=== PATIENT | male | born 1935 | race Caucasian/White ===

== ENCOUNTER 2016-10-19 13:34 | Inpatient (IN) | payer MEDICARE, OTHER ==
[2016-10-19] MEDS ORDERED: TYLENOL 325 MG PO PRN (17:09)
[2016-10-19] MEDS ORDERED: NON-FORMULARY ITEM (Prochlorperazine Maleate 10 Mg [Compazine 10 Mg] 10 MG) PO PRN (17:09)
[2016-10-19] MEDS ORDERED: Ativan 0.5 MG PO PRN (17:09)
[2016-10-19] MEDS ORDERED: Dulcolax 10 MG SUPP RC PRN (17:09)
[2016-10-19] MEDS ORDERED: ONDANSETRON 8 MG PO PRN (17:09)
[2016-10-19] MEDS ORDERED: Compazine 5 MG PO PRN (17:13)
[2016-10-19] MEDS ORDERED: ZOFRAN ODT 4 MG PO PRN (17:14)
--- NOTE | 2016-10-19 17:39 | XRAY ---
Indication: Short of breath and anemia. Status post thoracentesis. Comparison: None Portable chest demonstrates left base infiltrate/atelectasis/effusion. No pneumothorax. Right lung clear. Heart is not enlarged for AP portable technique. Bony thorax intact with mild osteopenia and degenerative changes. Impression: Left base infiltrate/atelectasis/effusion. Correlate clinically.
[2016-10-19] MEDS ORDERED: NON-FORMULARY ITEM (Mirtazapine [Remeron] 15 MG) PO SCH (22:00)
[2016-10-19] MEDS: REMERON 30 MG PO SCH (22:08)
[2016-10-20] MEDS: Flomax 0.4 MG PO SCH (09:28)
[2016-10-20] MEDS: Vitamin B-12 500 MCG PO SCH (09:28)
--- NOTE | 2016-10-20 09:45 | PCM.HP ---
History of Present Illness - Chief Complaint Chief Complaint: Deconditioning r/t SOB, anemia, thoracentesis, rectal CA Date: 10/20/16 History of Present Illness: is a 81 year old male. diagnosed last year with rectal cancer. He has been treated with chemotherapy and radiation. There is concern for possible metastasis to pleural fluid but studies are pending on this. After his last debulking surgery it appears in [place] he developed a buttocks wound infection and has been dealing with this for a wound vac now with wound therapy. He then developed worsening shortness of breath and was found to have large pleural effusions and severe anemia and was transfused 4 Units PRBC at [facility]. He then had thoracentesis X 2 the last being 10/13/16 with 250 cc of fluid drained the cytology is pending. There was discussion of putting chronic draining catheter in but elected not to do that at this time now. He follows with Dr. Beach oncology. last hgb available was 11.4 on 10/16/16. plt 225 and creat 0.5. - Review of Systems Constitutional: Lethargy, Malaise, No Fever, No Chills Eyes: No Symptoms Ears, Nose, & Throat: No Symptoms Respiratory: No Cough, No Short Of Breath Cardiac: No Chest Pain, No Edema, No Syncope Abdominal/Gastrointestinal: No Abdominal Pain, No Nausea, No Vomiting, No Diarrhea Genitourinary Symptoms: No Dysuria Musculoskeletal: No Back Pain, No Neck Pain Skin: No Rash Neurological: No Dizziness, No Focal Weakness, No Sensory Changes Psychological: No Symptoms Endocrine: No Symptoms Hematologic/Lymphatic: No Symptoms Immunological/Allergic: No Symptoms Medications & Allergies Home Medications: Home Medication List Acetaminophen 325 mg [Tylenol 325 mg] 650 mg PO Q6HPRN PRN 10/19/16 [ History Confirmed 10/19/16] Bisacodyl 10 mg [Dulcolax 10 MG SUPP] 10 mg RC DAILY PRN PRN 10/19/16 [ History Confirmed 10/19/16] Cyanocobalamin (Vitamin B-12) [Vitamin B-12] 1,000 mcg PO DAILY 10/19/16 [ History Confirmed 10/19/16] Hydrocodone Bit/Acetaminophen [[place] 5/325Mg] 1 tab PO Q4HPRN PRN 10/19/16 [ History Confirmed 10/19/16] Lorazepam 0.5 mg [Ativan 0.5 MG] 0.5 mg PO 1200 10/19/16 [History Confirmed 10/19/16] Lorazepam 0.5 mg [Ativan 0.5 MG] 0.5 mg PO Q6HPRN PRN 10/19/16 [History Confirmed 10/19/16] Mirtazapine [Remeron] 15 mg PO HS 10/19/16 [History Confirmed 10/19/16] Ondansetron 8 mg Odt [Ondansetron Odt 8 mg] 8 mg PO Q8HPRN PRN 10/19/16 [ History Confirmed 10/19/16] Prochlorperazine Maleate 10 mg [Compazine 10 mg] 10 mg PO Q6HPRN PRN 10/19/16 [ History Confirmed 10/19/16] Sennosides/Docusate Sodium [Senna-Docusate Sodium Tablet] 1 each PO DAILY PRN [History Confirmed 10/19/16] Tamsulosin HCl 0.4 mg [Flomax 0.4 MG] 0.8 mg PO DAILY 10/19/16 [History Confirmed 10/19/16] Allergies/Adverse Reactions: Allergies Allergy/AdvReac Type Severity Reaction Status Date / Time No Known Drug Allergies Allergy Verified 02/18/16 14:06 - Past Medical History Past Medical History: Yes Neurological History: No Pertinent History ENT History: No Pertinent History Cardiac History: No Pertinent History Respiratory History: Pneumonia Endocrine Medical History: No Pertinent History Musculoskelatal History: No Pertinent History GI Medical History: Colorectal Cancer History: No Pertinent History Pyscho-Social History: Anxiety, Depression Male Reproductive Disorders: No Pertinent History Comment: Rectal mass - Past Surgical History Past Surgical History: Yes Neuro Surgical History: No Pertinent History Cardiac History: No Pertinent History Respiratory Surgery: No Pertinent History GI Surgical History: Colon Resection Genitourinary Surgical Hx: No Pertinent History Musculskeletal Surgical Hx: Orthopedic Surgery Male Surgical History: No Pertinent History Other Surgical History: rt rotator cuff repair. colonoscopy - Social History Smoking Status: Never smoker Exposure to second hand smoke: No Alcohol: None Drug Use: none - Physical Exam Vital Signs: Vital Signs - 24 hr Temp Pulse Resp BP Pulse Ox 10/20/16 07:47 107 H 20 88 L 10/19/16 21:00 97.8 F 105 H 20 126/70 92 L 10/19/16 17:10 97.8 F 119 H 18 126/70 92 L 10/19/16 15:48 97.8 F 119 H 18 126/70 92 L 10/19/16 15:04 97.8 F 119 H 18 126/70 92 L General Appearance: no apparent distress, alert Neurologic Exam: alert, oriented x 3, cooperative, normal mood/affect, nml cerebellar function, nml station & gait, sensation nml, No motor deficits Eye Exam: PERRL/EOMI, eyes nml inspection Ears, Nose, Throat Exam: normal ENT inspection, TMs normal, pharynx normal, moist mucous membranes Neck Exam: normal inspection, non-tender, supple, full range of motion Respiratory Exam: normal breath sounds, lungs clear, No respiratory distress Cardiovascular Exam: regular rate/rhythm, normal heart sounds, normal peripheral pulses Gastrointestinal/Abdomen Exam: soft, normal bowel sounds, other (colostomy left lower quadrant wound vac buttocks), No tenderness, No mass Back Exam: normal inspection, normal range of motion, No CVA tenderness, No vertebral tenderness Extremity Exam: normal inspection, normal range of motion, pelvis stable Skin Exam: normal color, warm, dry, No rash Lymphatic Exam: No adenopathy Results - Radiology Impressions Radiology Exams & Impressions: Radiology Procedures Category Date Time Status CHEST 1 VIEW (PORTABLE) Routine Exams 10/19/16 18:30 Completed - Other Procedures and Tests Respiratory Therapy 10/20/16 07:45 Oxygen NASAL CANNULA 2 lpm Assessment/Plan (1) Rectal cancer Current Visit: Yes Status: Acute Assessment & Plan: follows with oncology Yong awaiting cytology on pleural fluid from [facility] to rule out metastasis to pleural fluid. Work on improving conditioning and controlling the wound of buttocks with wound vac hope for conditioning and restrengthening to be able to discharge back to home with assistance. Code(s): C20 - MALIGNANT NEOPLASM OF RECTUM (2) Anemia Current Visit: Yes Status: Acute Code(s): D64.9 - ANEMIA, UNSPECIFIED (3) Pleural effusion Current Visit: Yes Status: Acute Code(s): J90 - PLEURAL EFFUSION, NOT ELSEWHERE CLASSIFIED (4) Chronic respiratory failure with hypoxia Current Visit: Yes Status: Acute (5) Generalized weakness Current Visit: Yes Status: Acute Code(s): R53.1 - WEAKNESS (6) Wound, open, buttock with complication Current Visit: Yes Status: Acute Code(s): S31.809A - UNSPECIFIED OPEN WOUND OF UNSPECIFIED BUTTOCK, INIT ENCNTR
[2016-10-20] MEDS ORDERED: NON-FORMULARY ITEM (Cyanocobalamin (Vitamin B-12) [Vitamin B-12] 1,000 MCG) PO SCH (10:00)
[2016-10-20] MEDS ORDERED: Aplisol ID SCH (10:00)
[2016-10-20] MEDS: Ativan 0.5 MG PO SCH (11:45)
[2016-10-20] MEDS: ZOFRAN ODT 4 MG PO PRN (14:43)
[2016-10-20] MEDS: REMERON 30 MG PO SCH (22:58)
[2016-10-20] MEDS ORDERED: TUMS EX TABLETS PO ONE (23:07)
[2016-10-20] MEDS ORDERED: Tums EX 750 MG PO PRN (23:17)
[2016-10-21] MEDS: Flomax 0.4 MG PO SCH (09:52)
[2016-10-21] MEDS: Vitamin B-12 500 MCG PO SCH (09:52)
[2016-10-21] MEDS: Ativan 0.5 MG PO SCH (12:46)
[2016-10-21] MEDS: REMERON 30 MG PO SCH (21:42)
[2016-10-22] MEDS: Flomax 0.4 MG PO SCH (09:09)
[2016-10-22] MEDS: Senokot-S Tablet PO PRN (09:09)
[2016-10-22] MEDS: Vitamin B-12 500 MCG PO SCH (09:10)
[2016-10-22] MEDS: Ativan 0.5 MG PO SCH (12:21)
[2016-10-22] MEDS: ZOFRAN ODT 4 MG PO PRN (18:23)
[2016-10-22] MEDS: REMERON 30 MG PO SCH (22:16)
[2016-10-23] MEDS: Flomax 0.4 MG PO SCH (09:40)
[2016-10-23] MEDS: Senokot-S Tablet PO PRN (09:41)
[2016-10-23] MEDS: Vitamin B-12 500 MCG PO SCH (09:41)
[2016-10-23] MEDS: Ativan 0.5 MG PO SCH (12:57)
[2016-10-23] MEDS: REMERON 30 MG PO SCH (22:35)
[2016-10-24] MEDS: Flomax 0.4 MG PO SCH (10:50)
[2016-10-24] MEDS: Vitamin B-12 500 MCG PO SCH (10:50)
[2016-10-24] MEDS: Ativan 0.5 MG PO SCH (11:47)
[2016-10-24] MEDS: NORCO 5/325 MG PO PRN (12:52)
[2016-10-24] MEDS: REMERON 30 MG PO SCH (20:11)
[2016-10-25] MEDS: Flomax 0.4 MG PO SCH (09:48)
[2016-10-25] MEDS: NORCO 5/325 MG PO PRN (09:48)
[2016-10-25] MEDS: Vitamin B-12 500 MCG PO SCH (09:49)
[2016-10-25] MEDS: Ativan 0.5 MG PO SCH (12:32)
[2016-10-25] MEDS: REMERON 30 MG PO SCH (22:03)
[2016-10-26] MEDS: Vitamin B-12 500 MCG PO SCH (10:08)
[2016-10-26] MEDS: Flomax 0.4 MG PO SCH (10:08)
[2016-10-26] MEDS: Ativan 0.5 MG PO SCH (11:27)
[2016-10-26] MEDS: REMERON 30 MG PO SCH (21:57)
[2016-10-27 05:29] LABS: Mean Cell Volume 87.8 fl (78-100); Mean Platelet Volume 9.3 fl (6-9.5); Platelet Count 262 K/mm3 (150-450); Red Blood Count 4.25 M/mm3 (4.1-5.6); Red Cell Distribution Width 15.9 % (11.5-14.0); White Blood Count 8.3 K/mm3 (4.0-10.5)
[2016-10-27 05:47] LABS: ANION GAP 13.6 MEQ/L (5-15); BLOOD UREA NITROGEN 14 mg/dL (9-20); CHLORIDE 104 mEq/L (98-107); Carbon Dioxide 26.5 mEq/L (21-32); Glucose 89 MG/DL (70-110); Potassium 3.2 mEq/L (3.5-5.1); SODIUM 141 mEq/L (136-145)
[2016-10-27] MEDS: Senokot-S Tablet PO PRN (09:55)
[2016-10-27] MEDS: Vitamin B-12 500 MCG PO SCH (09:55)
[2016-10-27] MEDS: Flomax 0.4 MG PO SCH (09:55)
[2016-10-27] MEDS: Klor Con 10 MEQ PO SCH (10:00)
[2016-10-27] MEDS: Ativan 0.5 MG PO SCH (11:21)
[2016-10-27] MEDS: REMERON 30 MG PO SCH (21:26)
[2016-10-28 07:29] VITALS: BP 134/82; PULSE 117; O2SAT 96
--- NOTE | 2016-10-28 09:03 | PCM.DCORD ---
- Discharge Discharge Date: 10/28/16 Disposition: Home, Self-Care Condition: Stable Prescriptions: New Potassium Chloride 10 Meq Tab* [Klor Con 10 MEQ] 20 meq PO DAILY #60 tab Continue Tamsulosin HCl 0.4 mg [Flomax 0.4 MG] 0.8 mg PO DAILY Prochlorperazine Maleate 10 mg [Compazine 10 mg] 10 mg PO Q6HPRN PRN PRN Reason: Nausea/Vomiting Ondansetron 8 mg Odt [Ondansetron Odt 8 mg] 8 mg PO Q8HPRN PRN PRN Reason: Nausea Mirtazapine [Remeron] 15 mg PO HS Lorazepam 0.5 mg [Ativan 0.5 MG] 0.5 mg PO 1200 Lorazepam 0.5 mg [Ativan 0.5 MG] 0.5 mg PO Q6HPRN PRN PRN Reason: Anxiety Sennosides/Docusate Sodium [Senna-Docusate Sodium Tablet] 1 each PO DAILY PRN PRN Reason: Constipation Bisacodyl 10 mg [Dulcolax 10 MG SUPP] 10 mg RC DAILY PRN PRN PRN Reason: Constipation Acetaminophen 325 mg [Tylenol 325 mg] 650 mg PO Q6HPRN PRN PRN Reason: Pain Hydrocodone Bit/Acetaminophen [[place] 5/325Mg] 1 tab PO Q4HPRN PRN PRN Reason: Pain Cyanocobalamin (Vitamin B-12) [Vitamin B-12] 1,000 mcg PO DAILY Instructions: Thoracentesis, Colorectal Cancer, Anemia of Chronic Disease, Shortness of Breath Additional Instructions: Dr. Cho for wound care Follow up with: JOSE MONTERROSO [Primary Care Provider] - 1 Week DOMINGUEZ RUDD MD [NON-STAFF PHY W/O PRIVILEGES] - 1 Week Forms: Patient Portal Information
--- NOTE | 2016-10-28 09:07 | PCM.DS ---
Discharge Summary Date of Admission: 10/19/16 14:57 Date of Discharge: 10/28/16 Admitting Physician: JOSE MONTERROSO Primary Care Provider: JOSE MONTERROSO Allergies Allergies No Known Drug Allergies Allergy (Verified 02/18/16 14:06) Hospital Summary - Hospital Course Hospital Course: Mr. Babcock was diagnosed with rectal cancer and is s/p surgery and radiation and chemo and has a wound vac for a ulceration on the buttocks managed by wound care at [facility] Dr. Cho. He was more short of breath and admitted with acute anemia and had 2 thoracentesis there was concern for malignant effusion but we do not have the results on the cytology. He follows with Dr. Beach on this and he was sent to [place] for further rehabilitation to increase his strength prior to discharge to home. He followed with wound care and PT and did have some minimal improvement. Repeat hgb was stable at 11.9 and he was found to have K low at 3.2 and this was supplemented. He felt strong enough to and wanted to go back to home and was thus discharged to continue oncology and wound care follow up. - Vitals & Intake/Output Vital Signs: Vital Signs Temperature 97.9 F 10/28/16 07:28 Pulse Rate 117 H 10/28/16 07:28 Respiratory Rate 17 10/28/16 07:28 Blood Pressure 134/82 10/28/16 07:28 O2 Sat by Pulse Oximetry 96 10/28/16 07:28 Oxygen-Last Documented O2 Percentage 2 Liters = 28% Intake & Output: Intake & Output 10/25/16 10/26/16 10/27/16 10/28/16 11:59 11:59 11:59 11:59 Intake Total 700 681 059 4502 Output Total 1450 550 800 400 Balance -750 -170 170 650 Weight 74.571 kg - Lab Result Diagrams: 10/27/16 05:24 10/27/16 05:24 - Procedures and Test Procedures and Tests throughout Hospitalization: Therapy Orders & Screens 10/19/16 17:08 PT Eval & Treat ( Order) 2HRPRIOR Evaluate: Yes Treat: Yes Reason for Eval:: Deconditioning Diagnosis: Deconditioning r/t SOB, anemia, thoracentesis, rectal CA OT Eval and Treat ( Order) ROUTINE Comment: Consulting Provider: Physician Instructions: Reason For Exam: Deconditioning Evaluate: Yes Treat: Yes Reason for Evaluation: Deconditioning Diagnosis: Deconditioning r/t SOB, anemia, thoracentesis, rectal CA 10/20/16 07:45 Oxygen NASAL CANNULA 2 lpm Comment: Diagnosis: Deconditioning r/t SOB, anemia, thoracentesis, rectal CA Discharge Exam General Appearance: no apparent distress Neurologic Exam: alert, oriented x 3, cooperative Skin Exam: warm, dry Respiratory Exam: normal breath sounds, lungs clear Cardiovascular Exam: regular rate/rhythm, normal heart sounds, normal peripheral pulses Gastrointestinal/Abdomen Exam: soft, normal bowel sounds, No tenderness, No distention Extremity Exam: normal inspection, normal range of motion, No calf tenderness, No pedal edema Final Diagnosis/Problem List - Final Discharge Diagnosis/Problem (1) Rectal cancer Current Visit: Yes Status: Acute (2) Anemia Current Visit: Yes Status: Acute (3) Pleural effusion Current Visit: Yes Status: Acute (4) Chronic respiratory failure with hypoxia Current Visit: Yes Status: Acute (5) Generalized weakness Current Visit: Yes Status: Acute (6) Wound, open, buttock with complication Current Visit: Yes Status: Acute - Discharge Discharge Date: 10/28/16 Disposition: Home, Self-Care Condition: Stable Prescriptions: New Potassium Chloride 10 Meq Tab* [Klor Con 10 MEQ] 20 meq PO DAILY #60 tab Continue Tamsulosin HCl 0.4 mg [Flomax 0.4 MG] 0.8 mg PO DAILY Prochlorperazine Maleate 10 mg [Compazine 10 mg] 10 mg PO Q6HPRN PRN PRN Reason: Nausea/Vomiting Ondansetron 8 mg Odt [Ondansetron Odt 8 mg] 8 mg PO Q8HPRN PRN PRN Reason: Nausea Mirtazapine [Remeron] 15 mg PO HS Lorazepam 0.5 mg [Ativan 0.5 MG] 0.5 mg PO 1200 Lorazepam 0.5 mg [Ativan 0.5 MG] 0.5 mg PO Q6HPRN PRN PRN Reason: Anxiety Sennosides/Docusate Sodium [Senna-Docusate Sodium Tablet] 1 each PO DAILY PRN PRN Reason: Constipation Bisacodyl 10 mg [Dulcolax 10 MG SUPP] 10 mg RC DAILY PRN PRN PRN Reason: Constipation Acetaminophen 325 mg [Tylenol 325 mg] 650 mg PO Q6HPRN PRN PRN Reason: Pain Hydrocodone Bit/Acetaminophen [[place] 5/325Mg] 1 tab PO Q4HPRN PRN PRN Reason: Pain Cyanocobalamin (Vitamin B-12) [Vitamin B-12] 1,000 mcg PO DAILY Instructions: Thoracentesis, Colorectal Cancer, Anemia of Chronic Disease, Shortness of Breath Additional Instructions: Dr. Cho for wound care Follow up with: JOSE MONTERROSO [Primary Care Provider] - 1 Week DOMINGUEZ BEACH MD [NON-STAFF PHY W/O PRIVILEGES] - 1 Week Forms: Patient Portal Information
[2016-10-28] MEDS: Senokot-S Tablet PO PRN (09:42)
[2016-10-28] MEDS: Flomax 0.4 MG PO SCH (09:42)
[2016-10-28] MEDS: Vitamin B-12 500 MCG PO SCH (09:42)
[2016-10-28] MEDS: Klor Con 10 MEQ PO SCH (09:42)
[2016-10-28] MEDS: Ativan 0.5 MG PO SCH (11:53)
[2016-10-28] MEDS: NORCO 5/325 MG PO PRN (12:43)
[2016-10-31] MEDS ORDERED: Aplisol ID SCH (10:00)
== END 2016-10-28 13:25 | disposition home health service (06) | DRG 375 ==
LOC: MED SURG 14:57
PROVIDERS: ADMIT Family Medicine; ATTEND Family Medicine
DX: C20 Malignant neoplasm of rectum (principal); J90 Pleural effusion, not elsewhere classified; J96.11 Chronic respiratory failure with hypoxia; D64.9 Anemia, unspecified; R53.1 Weakness; S31.809A Unspecified open wound of unspecified buttock, initial encounter; Z98.890 Other specified postprocedural states
CPT/HCPCS: 36415; 71010; 80048; 85027; 94760; Q0162